=== PATIENT | female | born 1980 | race American Indian/Alaskan Native ===

== ENCOUNTER 2023-05-09 21:28 | Emergency (ER) | payer OTHER ==
[2023-05-09 21:33] VITALS: RESP 20; TEMP 97.8; BMI 29.5
[2023-05-09 23:01] LABS: BASO % 0.6 % (0-2.0); EOS % 4.1 % (0-4.5); HEMATOCRIT 37.2 % (32.4-45.2); HEMOGLOBIN 12.2 GM/dL (10.7-15.3); LYMPH % 22.4 % (8-40); MCH 25.1 pg (25.7-33.7); MCHC 32.8 g/dl (32.0-36.0); MEAN CELL VOLUME 76.7 fl (80-96); MEAN PLT VOLUME 7.6 fl (7.5-11.1); MONO % 6.1 % (3.8-10.2); NEUT % 66.8 % (42.8-82.8); PLATELET COUNT 310 10^3/uL (134-434); RBC 4.85 M/mm3 (3.60-5.2); RDW 16.4 % (11.6-15.6)
[2023-05-09 23:26] LABS: POTASSIUM 4.6 mmol/L (3.5-5.1)
[2023-05-09 23:28] LABS: CALCIUM 9.1 mg/dL (8.5-10.1)
[2023-05-09 23:29] LABS: ALBUMIN 3.7 g/dl (3.4-5.0); BLOOD UREA NITROGEN 9.9 mg/dL (7-18); MAGNESIUM 2.4 mg/dL (1.8-2.4)
[2023-05-09 23:31] LABS: INR 1.04 (0.83-1.09); PROTHROMBIN TIME (PATIENT) 12.1 SEC (9.7-13.0)
[2023-05-09 23:32] LABS: CREATININE 0.7 mg/dL (0.55-1.3)
[2023-05-09] MEDS ORDERED: ALBUTEROL SO4 2.5/IPRATROPIUM 0.5 INH SOL 3 ML VIAL.NEB. NEB ONE ×2 (23:32→23:59)
[2023-05-09 23:33] LABS: BILIRUBIN,TOTAL 0.3 mg/dL (0.2-1)
[2023-05-09 23:34] LABS: ACTIVATED PTT 33.3 SECONDS (25.2-36.5)
[2023-05-09] MEDS: ALBUTEROL SO4 2.5/IPRATROPIUM 0.5 INH SOL 3 ML VIAL.NEB. NEB ONE (23:34)
[2023-05-09 23:38] LABS: PH,URINE 6.5 (5.0-8.0); URINE APPEARANCE CLEAR; URINE BILIRUBIN NEGATIVE (NEGATIVE); URINE COLOR YELLOW; URINE GLUCOSE (UA) NEGATIVE (NEGATIVE); URINE KETONE NEGATIVE (NEGATIVE); URINE LEUK ESTERASE NEGATIVE (NEGATIVE); URINE NITRITE NEGATIVE (NEGATIVE); URINE PROTEIN NEGATIVE (NEGATIVE); URINE UROBILINOGEN 0.2 mg/dL (0.2-1.0)
[2023-05-09 23:44] LABS: URINE BARBITURATES NEGATIVE (NEGATIVE)
[2023-05-09 23:45] LABS: METHADONE, UR NEGATIVE (NEGATIVE); PHENCYCLIDINE,URINE NEGATIVE (NEGATIVE)
[2023-05-09 23:47] LABS: URINE BENZODIAZEPINES NEGATIVE (NEGATIVE)
[2023-05-09 23:51] LABS: COCAINE, UR POSITIVE (NEGATIVE); OPIATES, URI POSITIVE (NEGATIVE); URINE AMPHETAMINES NEGATIVE (NEGATIVE)
[2023-05-10] MEDS ORDERED: predniSONE 20 MG TABLET (UD) ONE
[2023-05-10] MEDS: ALBUTEROL SO4 2.5/IPRATROPIUM 0.5 INH SOL 3 ML VIAL.NEB. NEB ONE (00:04)
[2023-05-10] MEDS: predniSONE 20 MG TABLET (UD) PO ONE (00:04)
[2023-05-10] MEDS ORDERED: ALBUTEROL SO4 HFA INHALER IH ONE (00:38)
[2023-05-10 00:42] VITALS: BP 144/84; PULSE 100
[2023-05-10] MEDS: ALBUTEROL SO4 HFA INHALER IH ONE (00:42)
== END 2023-05-10 00:43 | disposition home or self-care (01) ==
LOC: JER 21:28
PROC: 3E0F7GC Introduction of Other Therapeutic Substance into Respiratory Tract, Via Natural or Artificial Opening (ICD-10-PCS; principal; 2023-05-10)
PROC: 3E0F7GC Introduction of Other Therapeutic Substance into Respiratory Tract, Via Natural or Artificial Opening (ICD-10-PCS; 2023-05-10)
PROC: 3E0F7GC Introduction of Other Therapeutic Substance into Respiratory Tract, Via Natural or Artificial Opening (ICD-10-PCS; 2023-05-10)
DX: R06.02 Shortness of breath (principal); R42 Dizziness and giddiness; R00.0 Tachycardia, unspecified
CPT/HCPCS: 36415; 71046-TC-FY; 80053; 80307; 81003; 83735; 83880; 84484; 84703; 85025; 85610; 85730; 93005; 93010; 99285-25